=== PATIENT | female | born 1955 | race African-American/Black ===

== ENCOUNTER 2016-05-07 17:25 | Inpatient (IN) | payer OTHER ==
[~2016-05-07] VITALS: Ht 180.3 cm; Wt 146.7 kg
--- NOTE | ~2016-05-07 | HC ---
[facility] [place] [address] CONSULTATION Name: MARTÍNRANDA ALTMAN Room #: 458-P ADM IN M.R.#: [id number] Admission: 05/07/16 Attend Phys: Dileep Landa Discharge: Date of : 59 Report #: [id number] THIS REPORT FOR: //name// CC: Virginie Landa REASON FOR CONSULTATION: Elevated creatinine. REASON FOR PRESENTATION: Low hemoglobin. HISTORY OF PRESENT ILLNESS: This patient is well known to me. She is a 61-year-old with past medical history of diabetes mellitus. Her baseline creatinine is known to be around 1.5. She was admitted few months ago to [facility]. At that time, she had progressive worsening edema and diarrhea. Her diuresis course was complicated by an acute kidney injury with her creatinine leveling around 3. She then went to [facility] and we optimized her medical treatment and her creatinine had remained stable around 3. Her diuretic regimen as far as I recall at that time included only Lasix. She was discharged to [facility] and stayed there for about 4 weeks for rehabilitation. Reviewing her medication there, it does look like they have added Zaroxolyn to her regimen. Yesterday, they checked her hemoglobin, it was found to be low and was sent for further evaluation. She is known to have diabetes mellitus, hypertension with multiple other comorbid condition as listed below. PAST MEDICAL HISTORY: 1. Status post mastectomy for breast cancer followed by chemotherapy. 2. Diabetes mellitus with all of its complications. 3. Hypertension. 4. Status post left hip fracture repair. 5. Left tibial fracture repair. 6. Morbid obesity. 7. Tonsillectomy. 8. Gallbladder surgery. REVIEW OF SYSTEMS: GENERAL: No fever or chills. CARDIOVASCULAR: No chest pain or palpitation. PULMONARY: No cough or hemoptysis. GASTROINTESTINAL: No hematochezia, no melena. GENITOURINARY: No frequency, no urgency. MUSCULOSKELETAL: She is bedridden. FAMILY HISTORY: Significant for diabetes mellitus and hypertension. SOCIAL HISTORY: No drug or alcohol abuse. She stays at the [facility] right now. [facility] [address] [facility] [place] [address] CONSULTATION Name: RANDA RESENDIZ Room #: 458-P [facility] IN [facility].#: [id number] Admission: 05/07/16 Attend Phys: Dileep Landa Discharge: Date of : 59 Report #: [id number] MEDICATIONS: 1. Carvedilol. 2. Amlodipine. 3. Potassium was listed as medication; however, she declined taking it. 4. Metolazone. 5. Esomeprazole. 6. Sertraline. 7. Atorvastatin. 8. Insulin. PHYSICAL EXAMINATION: GENERAL: She is alert, oriented, in no apparent distress. VITAL SIGNS: Temperature 37.3, blood pressure 132/62. HEAD AND NECK: No jugular venous distention, no bruit, no thyromegaly. CHEST: Clear to auscultation bilaterally. CARDIOVASCULAR: Regular with no rub detected distant . ABDOMEN: Soft, nontender. EXTREMITIES: Lower extremities, +1 edema. Most of her edema is localized around her truncal area and in the thighs area. LABORATORY VALUES: Reviewed. Hemoglobin is up to 7.7. Potassium 5.7, creatinine is 4.5. She did have significant eosinophilia drawn all the way back to February. Her iron sat is low. Phosphorus is elevated. ASSESSMENT, IMPRESSION, PLAN: 1. Acute kidney injury. 2. Hyperkalemia. 3. Diabetes mellitus. 4. Hypertension. 5. Anemia. 6. Iron deficiency. 7. Eosinophilia. 8. We will resend the acute kidney injury workup. Blood pressure seems to be under control. 9. I would hold the diuretics for now including the Lasix and the metolazone. 10. Blood sugar control. 11. Workup for her anemia. 12. IV iron. 13. Discontinue Protonix given her eosinophilia. 14. Volume status seems to be optimized for now. Unfortunately, she has some [address] [address] CONSULTATION Name: RANDA RESENDIZ ANUPAMA Room #: 458-P [facility] IN .R.#: [id number] Admission: 05/07/16 Attend Phys: Dileep Landa Discharge: Date of : 59 Report #: [id number] chronic venous stasis changes that will never resolve with diuretics and further diuresis will compromise her renal function. <ELECTRONICALLY SIGNED> By: Mg Cee MD 05/09/16 0916 0923 0118 Mg Cee MD /nt
--- NOTE | ~2016-05-07 | HC ---
[facility] [place] [address] CONSULTATION Name: MARTÍNRANDA ALTMAN Room #: 458-P [facility] IN M.R.#: [id number] Admission: 05/07/16 Attend Phys: Dileep Landa Discharge: Date of : 59 Report #: [id number] THIS REPORT FOR: //name// CC: Virginie Landa MD DATE OF SERVICE: 05/09/2016 HISTORY OF PRESENT ILLNESS: The patient is a 61-year-old female in consultation for anemia. She denies any obvious bright red blood per rectum or melena. She has a history of chronic renal insufficiency. She denies any abdominal pain. She does have a family history of colon cancer in her sister. The patient's hemoglobin on admission was 7.3. She has received 1 unit of packed cells and she is currently undergoing IV iron infusion. Her hemoglobin today is 7.3 as well, yesterday was 7.7. She states her last colonoscopy was 10 years ago and reportedly negative at that time. On admission, creatinine was 4.5. In looking back at old hemoglobin levels in the computer, 2012, she was anemic in the 8-9 range as well. She has never been on dialysis apparently. She denies any abdominal pain, her weight has been stable. She does have a history of breast cancer, was treated, and now on remission. She currently denies any chest pain or shortness of breath. No fevers or chills. She does report generalized fatigue. PAST MEDICAL HISTORY: Breast cancer, status post right mastectomy and previous chemotherapy, history of diabetes, chronic renal insufficiency, previous cholecystectomy, hip surgery, obesity, history of depression, history of anemia, diabetes, peripheral neuropathy, history of congestive heart failure. MEDICATIONS ON ADMISSION: DuoNeb, Lovenox, Coreg, amlodipine, magnesium chloride, potassium, metolazone, Nexium, insulin, Zoloft, Lipitor. REVIEW OF SYSTEMS: As per HPI. FAMILY HISTORY: Positive for colon cancer in her sister who was reportedly diagnosed in her 30s or 40s. SOCIAL HISTORY: She is a former smoker, quit approximately several years ago. She reports occasional alcohol use. PHYSICAL EXAMINATION: VITAL SIGNS: Temperature is 98.7, pulse 62, blood pressure 133/56, respiratory rate is 18. GENERAL: She is alert and oriented x 3 in no acute distress. HEENT: Sclerae nonicteric. Oropharynx clear. [facility] [address] [place] [address] CONSULTATION Name: RANDA RESENDIZ Room #: 458-P [facility] IN [facility]#: [id number] Admission: 05/07/16 Attend Phys: Dileep Landa Discharge: Date of : 59 Report #: [id number] NECK: Supple, without lymphadenopathy. CARDIOVASCULAR: Regular rate and rhythm. LUNGS: Clear to auscultation anteriorly bilaterally. ABDOMEN: Soft. She is nontender, nondistended, normoactive bowel sounds. EXTREMITIES: No cyanosis, clubbing or edema. LABORATORY DATA: Sodium 144, potassium 5.4, chloride 113, bicarbonate 22, BUN 69, creatinine 4.5, glucose 65, calcium 8.2, magnesium 1.7. Iron 16, TIBC is 188. WBC is 7.0, hemoglobin 7.3, and platelet count is 245. ASSESSMENT AND PLAN: Anemia. No obvious history of melena or bright red blood per rectum, would recommend Hemoccult testing stools at this point. The patient is due for a colonoscopy as it has been more than 10 years and she has a family history. We will likely proceed with an esophagogastroduodenoscopy and colonoscopy on Tuesday. I explained to the patient we would like to have Nephrology evaluate her renal function before prepping. She is on IV fluids at this time as well. We will continue to follow closely. Thank you for allowing me to participate in her care. <ELECTRONICALLY SIGNED> By: Mak Nunez MD 05/10/16 1147 1428 2318 Mak Nunez MD /nt
--- NOTE | ~2016-05-07 | S ---
[facility] [place] [address] SURGICAL PATH RPT PROCEDURE Name: RUPA RESENDIZ Room #: 458-P [facility] IN M.R.#: [id number] Admission: 05/07/16 Date of : 59 Discharge: 05/12/16 Report #: [id number] Path Case #: [id number] PATHOLOGY REPORT COLLECTION DATE: 05/11/2016 RECEIVED DATE: 05/11/2016 SUBMITTING PHYS: Dr. Mak Nunez OTHER PHYS: Dr. Dileep Polanco SPECIMEN(S) RECEIVED: A.Biopsies small bowel B.Submucosal mass lipoma at 90 cm C.Polyp hot snare transverse colon * * * * * * * * * * * * FINAL DIAGNOSIS: A. "Biopsy small bowel", biopsy: - Small bowel/duodenal mucosa with minimal histologic alterations; no evidence of celiac sprue. B. "Submucosal mass lipoma at 90 cm", biopsy: - Superficial mucosal biopsy showing colonic mucosa with reactive and hyperplastic changes; no dysplasia seen (see comment). C. "Polyp hot snare transverse colon", biopsy: - Tubular adenoma; no high grade dysplasia. COMMENT: Within specimen B, no submucosal tissue is present for evaluation. Clinical and endoscopic correlation is recommended. (CLW:all:; d/t: 05/12/16) PATHOLOGIST: Cee Reyes M.D. REPORT ELECTRONICALLY SIGNED BY: Cee Reyes M.D. DATE/TIME: 05/12/2016 21:59 * * * * * * * * * * * * GROSS PATHOLOGY: A. Received in formalin labeled "Rupa Resendiz, biopsies small bowel," are three segments of smith soft tissue measuring 0.7 x 0.7 x 0.2 cm in aggregate dimensions and ranging from 0.2 to 0.5 cm in maximum dimension. The specimen is submitted entirely in cassette A1. B. Received in formalin labeled "Rupa Resendiz, submucosal mass lipoma at 90 cm," are six segments of smith soft tissue measuring 1.2 x 1.1 x 0.1 cm in aggregate dimensions and ranging from 0.2 to 0.4 cm in maximum dimension. The specimen is submitted entirely in cassette B1. [address] [address] SURGICAL PATH RPT PROCEDURE Name: RUPA RESENDIZ ANUPAMA Room #: 458-P [facility] IN ..#: [id number] Admission: 05/07/16 Date of : 59 Discharge: 05/12/16 Report #: [id number] Path Case #: [id number] C. Received in formalin labeled "Rupa Resendiz, transverse colon polyp," are three segments of smith soft tissue measuring 1.2 x 1.1 x 0.2 cm in aggregate dimensions and ranging from 0.5 to 0.9 cm in maximum dimension. The specimen is submitted entirely in cassette C1. (CAA; 05/11/2016) CLINICAL HISTORY: Anemia, hiatal hernia, lipoma, polyp, internal hemorrhoids A only: R/O celiac disease INITIAL CPT CODE(S): A; 00495 B; 45196 C; 27218 Professional services performed by [facility] at [facility] [address], [place] [address] Technical services performed by [facility] at [address] [place] [address], [address], [place] [address]. [facility] [address] [place] [address] PHONE: [phone] DIRECTOR: Daniel Barfield M.D. * * * END OF REPORT * * *
--- NOTE | ~2016-05-07 | P ---
[facility] [place] [place] [address] PROCEDURE REPORT Name: RANDA RESENDIZ Room #: 458-P [facility] IN ..#: [id number] Admission: 05/07/16 Attend Phys: Dileep Landa Discharge: 05/12/16 Date of : 59 Report #: [id number] THIS REPORT FOR: //name// CC: Virginie Lyman MD DATE OF SERVICE: 05/11/2016 PROCEDURE PERFORMED: Upper endoscopy with biopsies. HISTORY OF PRESENT ILLNESS: The patient is a 61-year-old female with a history of chronic renal insufficiency and anemia, had a hemoglobin 7.3 on admission. She has been transfused 2 units since admission. There has been no obvious history of bright red blood per rectum or melena. Hemoccult stool has been ordered, but has not been performed as yet. Her last colonoscopy was at least 10 years ago. She does have a family history of colon cancer in her sister. She denies any upper symptoms. Plan is for EGD and colonoscopy. DESCRIPTION OF PROCEDURE: The risks and benefits of the procedure were explained to the patient, those risks including but not limited to bleeding, perforation, the risk of sedation. She understood these risks and gave informed consent. Sedation was given using propofol per anesthesia. Next, a standard VoodooVoxinon upper endoscope was placed in the patient's mouth and advanced under direct vision through the esophagus, stomach and into the second portion of the duodenum. The esophagus was normal throughout. The GE junction was normal. Upon entering the stomach, a small hiatal hernia was noted. Overall, the gastric mucosa was normal. The pylorus was normal and patent. The duodenal bulb, first and second portion were all normal. Random biopsies of the second portion of the duodenum were obtained to rule out the possibility of celiac sprue. The scope was then withdrawn and the procedure terminated. The patient tolerated the procedure well. IMPRESSION: 1. Small hiatal hernia. 2. Otherwise, normal upper endoscopy. RECOMMENDATIONS: 1. Await biopsy results. 2. We will proceed with colonoscopy next today. [facility] [address] [place] [address] PROCEDURE REPORT Name: RANDA RESENDIZ Room #: 458-P [facility] IN M.R.#: [id number] Admission: 05/07/16 Attend Phys: Dileep Landa Discharge: 05/12/16 Date of : 59 Report #: [id number] Thank you for allowing me to participate in her care. <ELECTRONICALLY SIGNED> By: Mak Nunez MD 05/12/16 1932 1431 1845 Mak Nunez MD /nt
--- NOTE | ~2016-05-07 | P ---
[facility] [place] [address] PROCEDURE REPORT Name: RANDA RESENDIZ Room #: 458-P [facility] IN M.R.#: [id number] Admission: 05/07/16 Attend Phys: Dileep Landa Discharge: 05/12/16 Date of : 59 Report #: [id number] THIS REPORT FOR: //name// CC: Virginie Lyman MD DATE OF SERVICE: 05/11/2016 PROCEDURE PERFORMED: Colonoscopy with biopsies. HISTORY OF PRESENT ILLNESS: The patient is a 61-year-old female with chronic renal insufficiency, anemia, was transfused 2 units on admission. Hemoccult testing of stools has been pending. Last colonoscopy was approximately 10 years ago. She does have a family history of colon cancer in her sister. DESCRIPTION OF PROCEDURE: The risks and benefits of the procedure were explained to the patient, those risks including but not limited to bleeding, perforation, the risk of sedation. She understood these risks and gave informed consent. Sedation was given using propofol per anesthesia. Next, a digital rectal exam was initially performed, which was normal. Next, using a standard YuMingleinon colonoscope, the scope was placed in the patient's anus and advanced under direct vision to the cecum. The overall prep was good. Cecum and ileocecal valve were normal in appearance. The ascending colon was normal. In the transverse colon, a large 2 cm submucosal mass was noted. This appears consistent with a lipoma. Several biopsies were obtained. I was able to see some fat within the irrigant consistent with a lipoma. Also, in the transverse colon was a 5 mm sessile polyp. This was removed by snare cautery, otherwise the descending and sigmoid colon were normal. The rectal mucosa was normal. On retroflexion, small nonbleeding internal hemorrhoids were noted, otherwise normal colonoscopy. The scope was then withdrawn and the procedure terminated. The patient tolerated the procedure well. IMPRESSION: 1. At 90 cm, biopsies obtained, ____ likely lipoma. 2. Transverse colon polyp. 3. Nonbleeding internal hemorrhoids. 4. Otherwise, normal colonoscopy. RECOMMENDATIONS: 1. Await biopsy results. 2. Repeat colonoscopy in 5 years due to family history and polyp. 3. We will await Hemoccult testing at this time. [address] [address] PROCEDURE REPORT Name: RANDA RESENDIZ Room #: 458-P [facility] IN .R.#: [id number] Admission: 05/07/16 Attend Phys: Dileep Landa Discharge: 05/12/16 Date of : 59 Report #: [id number] Thank you for allowing me to participate in her care. <ELECTRONICALLY SIGNED> By: Mak Nunez MD 05/12/16 1936 1434 43 Mak Nunez MD /nt
[~2016-05-07 17:25] MED LIST: ALTACE10 MG PO; AMBIEN 5 MG TABL5 M1 PO; AMLODIPINE BESY10 MG PO; APIDRA SUBQ; BISACODYL10 MG RC; CARVEDILOL25 MG PO; COLACE 100 MG100 MG PO; CRESTOR10 MG PO; DIOVAN160 MG PO; DUONEB 2.5-0.5 M3 ML INH; ENOXAPARIN30 MG/0.1 SUBQ; ENOXAPARIN40 MG/0.1 SUBQ; GLUCOPHAGE500 MG PO; HYDROCODON-ACE1 EAC7 OR; HYDROCODONE-APA1 TA1 PO; IRON325 PO; K-DUR 20 MEQ T20 MEQ PO; LANTUS SUBQ; LEVEMIR; LEVEMIR SUBQ; LIPITOR 20 MG T20 M1 PO; MAG6464 MG PO; MAGNESIUM OXID400 MG PO; METOLAZONE 2.52.5 MG PO; NEXIUM40 MG PO; NORCO 5-325 TA1 EACH PO; NOVOLIN R100 UNIT/1 SUBQ; NOVOLOG100 UNIT/1; PROBIOTIC1 EAC2 PO; SERTRALINE HCL50 MG PO; TYLENOL325 MG PO; ZOFRAN ODT4 MG PO
[2016-05-07 18:29] VITALS: BP 133/61
[2016-05-07 19:30] VITALS: BP 135/55
[2016-05-07 22:15] LABS: RDW 18.1 % (10.5-14.5)
[2016-05-07 22:21] LABS: HEMATOCRIT 21.7 % (37.0-47.0); MCH 28.8 pg (26.0-34.0); MCHC 33.5 % (28.0-37.0); MCV 86.2 fL (80.0-100.0); RBC 2.52 mil/uL (4.20-5.00); WBC 7.2 thou/uL (4.0-11.0)
[2016-05-07 22:28] LABS: HEMOGLOBIN 7.3 gm/dL (12.0-15.0)
[2016-05-07 23:45] VITALS: BP 132/60; BP 138/66
[2016-05-08 04:13] VITALS: BP 133/59
[2016-05-08 04:22] LABS: HEMATOCRIT 22.5 % (37.0-47.0); RBC 2.59 mil/uL (4.20-5.00)
[2016-05-08 04:24] LABS: ABSOLUTE NEUTROPHILS 3.6 thou/uL (1.4-8.2); BASOPHILS 0.6 % (0.0-2.0); EOSINOPHILS 8.9 % (0.0-3.0); HEMOGLOBIN 7.7 gm/dL (12.0-15.0); LYMPHOCYTES 27.1 % (24.0-44.0); MCH 29.6 pg (26.0-34.0); MCHC 34.1 % (28.0-37.0); MONOCYTES 10.8 % (1.0-8.0); PLATELET COUNT 238 thou/uL (150-400); POLYS 52.6 % (36.0-66.0); RDW 17.2 % (10.5-14.5); WBC 6.9 thou/uL (4.0-11.0)
[2016-05-08 04:26] LABS: MANUAL DIFF NO
[2016-05-08 04:42] LABS: ALBUMIN 1.5 g/dL (3.4-5.0); ANION GAP 10 mmol/L (7-16); BUN 67 mg/dL (7-18); CALCIUM 8.1 mg/dL (8.5-10.1); CHLORIDE 110 mmol/L (98-107); CO2 21 mmol/L (21-32); CREATININE 4.5 mg/dL (0.6-1.3); GLUCOSE 67 mg/dL (70-99); PHOSPHORUS 6.3 mg/dL (2.5-4.9); POTASSIUM 5.7 mmol/L (3.5-5.1); SODIUM 141 mmol/L (136-145); TROPONIN-I < 0.04 ng/mL (<0.04-0.07)
[2016-05-08 06:09] LABS: % SATURATION 9 % (15-55); IRON 16 ug/dL (27-159); TIBC 188 ug/dL (250-450); UIBC 172 ug/dL (131-425)
[2016-05-08 08:09] VITALS: BP 132/60
[2016-05-08 10:23] LABS: ALBUMIN 1.5 g/dL (3.4-5.0); CALCIUM 7.6 mg/dL (8.5-10.1); CREATININE 4.3 mg/dL (0.6-1.3); PHOSPHORUS 6.2 mg/dL (2.5-4.9); POTASSIUM 5.5 mmol/L (3.5-5.1)
[2016-05-08 12:00] VITALS: BP 132/62
[2016-05-08 16:00] VITALS: BP 117/57
[2016-05-08 19:56] LABS: URINE BILIRUBIN NEGATIVE (Negative); URINE BLOOD 2+ (Negative); URINE COLOR YELLOW; URINE GLUCOSE-RANDOM* NEGATIVE (Negative); URINE KETONES NEGATIVE (Negative); URINE NITRITE POSITIVE (Negative); URINE PROTEIN (DIPSTICK) 2+ (Negative); URINE SPECIFIC GRAVITY 1.025 (1.003-1.035); URINE UROBILINOGEN 0.2 E.U./dl (0.2-1.0)
[2016-05-08 20:04] LABS: COARSE GRANULAR CASTS 4-10 Moderate /LPF (None Seen); HYALINE CASTS 0-3 Few /LPF (None Seen); SQUAMOUS None Seen /LPF (0-3); URINE WBC >25 Many /HPF (0-5); YEAST Present (None Seen)
[2016-05-08 20:05] LABS: BACTERIA >30 Many /HPF (None Seen); URINE RBC 0-2 Rare /HPF (0-2)
[2016-05-08 20:16] VITALS: BP 125/49
[2016-05-08 20:40] LABS: SMEAR FOR EOSINOPHILS Few per HPF
[2016-05-09] VITALS (7 sets, daily range): BP systolic 125–135; BP diastolic 52–57
[2016-05-09 05:42] LABS: MCH 28.5 pg (26.0-34.0); MCHC 32.7 % (28.0-37.0)
[2016-05-09 05:44] LABS: HEMATOCRIT 22.3 % (37.0-47.0); MCV 87.2 fL (80.0-100.0); RBC 2.56 mil/uL (4.20-5.00); RDW 17.2 % (10.5-14.5)
[2016-05-09 05:51] LABS: HEMOGLOBIN 7.3 gm/dL (12.0-15.0)
[2016-05-09 05:54] LABS: ALBUMIN 1.4 g/dL (3.4-5.0); CALCIUM 8.2 mg/dL (8.5-10.1); CREATININE 4.5 mg/dL (0.6-1.3); PHOSPHORUS 6.2 mg/dL (2.5-4.9); POTASSIUM 5.4 mmol/L (3.5-5.1)
[2016-05-09 13:06] LABS: URINE CREATININE-RANDOM* 57.1 mg/dL (Not Estab.)
[2016-05-10 03:30] VITALS: BP 125/57
[2016-05-10 04:27] LABS: ABSOLUTE NEUTROPHILS 3.6 thou/uL (1.4-8.2); BASOPHILS 0.7 % (0.0-2.0); HEMATOCRIT 22.9 % (37.0-47.0); HEMOGLOBIN 7.7 gm/dL (12.0-15.0); LYMPHOCYTES 29.5 % (24.0-44.0); MCH 28.6 pg (26.0-34.0); MCHC 33.8 % (28.0-37.0); MCV 84.6 fL (80.0-100.0); MONOCYTES 9.9 % (1.0-8.0); PLATELET COUNT 272 thou/uL (150-400); POLYS 50.9 % (36.0-66.0); RBC 2.71 mil/uL (4.20-5.00); RDW 16.9 % (10.5-14.5)
[2016-05-10 04:33] LABS: MANUAL DIFF NO
[2016-05-10 04:49] LABS: ALBUMIN 1.4 g/dL (3.4-5.0); CALCIUM 8.1 mg/dL (8.5-10.1); CREATININE 4.4 mg/dL (0.6-1.3); PHOSPHORUS 5.6 mg/dL (2.5-4.9); POTASSIUM 5.2 mmol/L (3.5-5.1)
[2016-05-10 07:36] VITALS: BP 130/62
[2016-05-10 12:28] VITALS: BP 130/64
[2016-05-10 16:52] VITALS: BP 142/73
[2016-05-10 19:47] VITALS: BP 151/66
[2016-05-11 05:03] VITALS: BP 154/75
[2016-05-11 05:37] LABS: HEMATOCRIT 27.5 % (37.0-47.0); HEMOGLOBIN 9.1 gm/dL (12.0-15.0); MCH 28.5 pg (26.0-34.0); MCHC 33.2 % (28.0-37.0); MCV 85.8 fL (80.0-100.0); RBC 3.2 mil/uL (4.20-5.00); RDW 16.7 % (10.5-14.5); WBC 6.9 thou/uL (4.0-11.0)
[2016-05-11 05:54] LABS: ALBUMIN 1.4 g/dL (3.4-5.0); CALCIUM 8.3 mg/dL (8.5-10.1); PHOSPHORUS 5.1 mg/dL (2.5-4.9); POTASSIUM 5.1 mmol/L (3.5-5.1)
[2016-05-11 07:56] VITALS: BP 155/72
[2016-05-11 15:50] VITALS: BP 152/70
[2016-05-11 16:11] LABS: KAPPA FREE LIGHT CHAINS 197.78 mg/L (3.30-19.40); KAPPA/LAMBDA RATIO 1.56 (0.26-1.65)
[2016-05-11 19:46] VITALS: BP 141/58
[2016-05-12 04:03] VITALS: BP 126/58
[2016-05-12 06:03] LABS: ALBUMIN 1.4 g/dL (3.4-5.0); CALCIUM 7.9 mg/dL (8.5-10.1); CREATININE 4.1 mg/dL (0.6-1.3)
[2016-05-12 08:08] VITALS: BP 139/56
[2016-05-12 10:49] VITALS: BP 137/65
[2016-05-12] MEDS ORDERED: ZYVOX600 MG PO (12:00)
[2016-05-12] MEDS ORDERED: ACETAMINOPHEN325 M1 PO (12:00)
[2016-05-12] MEDS ORDERED: PROCRIT20000 UNIT SUBQ (12:00)
[2016-05-12] MEDS ORDERED: CALCIUM ACETAT667 MG PO (12:01)
[2016-05-12] MEDS ORDERED: PEPCID20 MG PO (12:01)
[2016-05-12] MEDS ORDERED: LEVEMIR SUBQ (12:02)
[2016-05-12 16:12] LABS: c-ANCA <1:20 titer (Neg:<1:20); p-ANCA <1:20 titer (Neg:<1:20)
[2016-05-12 16:15] VITALS: BP 149/76
[2016-05-12 17:09] LABS: A/G RATIO 0.6 (0.7-1.7); ALBUMIN 1.8 g/dL (2.9-4.4); ALPHA 1 0.3 g/dL (0.0-0.4); ALPHA 2 0.8 g/dL (0.4-1.0); BETA 0.8 g/dL (0.7-1.3); GAMMA 1.1 g/dL (0.4-1.8); M-SPIKE Not Observed g/dL (Not Observed)
== END 2016-05-12 18:34 | DRG 682 ==
LOC: 4W 17:25
PROVIDERS: Hospitalist; Internal Medicine Nephrology
PROC: 30233N1 Transfusion of Nonautologous Red Blood Cells into Peripheral Vein, Percutaneous Approach (ICD-10-PCS; principal; 2016-05-09)
PROC: 0DB98ZX Excision of Duodenum, Via Natural or Artificial Opening Endoscopic, Diagnostic (ICD-10-PCS; 2016-05-11)
PROC: 0D5L8ZZ Destruction of Transverse Colon, Via Natural or Artificial Opening Endoscopic (ICD-10-PCS; 2016-05-11)
PROC: 0DBL8ZZ Excision of Transverse Colon, Via Natural or Artificial Opening Endoscopic (ICD-10-PCS; 2016-05-11)
DX: N17.9 Acute kidney failure, unspecified (principal); I50.43 Acute on chronic combined systolic (congestive) and diastolic (congestive) heart failure; I13.0 Hypertensive heart and chronic kidney disease with heart failure and stage 1 through stage 4 chronic kidney disease, or unspecified chronic kidney disease; I42.9 Cardiomyopathy, unspecified; N39.0 Urinary tract infection, site not specified; Z68.42 Body mass index [BMI] 45.0-49.9, adult; E87.5 Hyperkalemia; N18.4 Chronic kidney disease, stage 4 (severe); D50.9 Iron deficiency anemia, unspecified; D72.1 Eosinophilia; K44.9 Diaphragmatic hernia without obstruction or gangrene; K64.8 Other hemorrhoids; D12.3 Benign neoplasm of transverse colon; E11.40 Type 2 diabetes mellitus with diabetic neuropathy, unspecified; F32.9 Major depressive disorder, single episode, unspecified; E11.65 Type 2 diabetes mellitus with hyperglycemia; E66.01 Morbid (severe) obesity due to excess calories; E11.22 Type 2 diabetes mellitus with diabetic chronic kidney disease; E83.39 Other disorders of phosphorus metabolism; B95.7 Other staphylococcus as the cause of diseases classified elsewhere; Z80.0 Family history of malignant neoplasm of digestive organs; Z87.891 Personal history of nicotine dependence; Z90.11 Acquired absence of right breast and nipple; Z85.3 Personal history of malignant neoplasm of breast; Z87.81 Personal history of (healed) traumatic fracture; Z98.890 Other specified postprocedural states; Z82.49 Family history of ischemic heart disease and other diseases of the circulatory system; Z83.3 Family history of diabetes mellitus; Z90.49 Acquired absence of other specified parts of digestive tract; E78.5 Hyperlipidemia, unspecified; D64.4 Congenital dyserythropoietic anemia
CPT/HCPCS: 10045; 62110; 62900; 70005

== ENCOUNTER 2018-07-15 14:13 | Inpatient (IN) | payer OTHER ==
[~2018-07-15] VITALS: Ht 180.3 cm; Wt 115.7 kg
[2018-07-15 14:13] VITALS: BP 174/92
[~2018-07-15 14:13] MED LIST changes: +ACETAMINOPHEN325 M1 PO; +CALCIUM ACETAT667 MG PO; +PEPCID20 MG PO; +PROCRIT20000 UNIT SUBQ; +ZYVOX600 MG PO
[2018-07-15 15:03] LABS: ABSOLUTE NEUTROPHILS 3.1 thou/uL (1.4-8.2); BASOPHILS 0.4 % (0.0-2.0); EOSINOPHILS 4.9 % (0.0-3.0); HEMOGLOBIN 11.1 gm/dL (12.0-15.0); LYMPHOCYTES 26.1 % (24.0-44.0); MCH 24.8 pg (26.0-34.0); MCHC 31.8 g/dL (28.0-37.0); MONOCYTES 8.5 % (1.0-8.0); PLATELET COUNT 219 thou/uL (150-400); POLYS 60.1 % (36.0-66.0); RBC 4.49 mil/uL (4.20-5.00); RDW 19.8 % (10.5-14.5); WBC 5.1 thou/uL (4.0-11.0)
[2018-07-15 15:12] LABS: ANION GAP 6 mmol/L (7-16); BUN 13 mg/dL (7-18); CALCIUM 8.3 mg/dL (8.5-10.1); CHLORIDE 99 mmol/L (98-107); CO2 30 mmol/L (21-32); CREATININE 3.1 mg/dL (0.6-1.0); GLUCOSE 74 mg/dL (74-106); POTASSIUM 3.7 mmol/L (3.5-5.1); SODIUM 135 mmol/L (136-145)
[2018-07-15 15:19] LABS: PROTIME 10.7 Seconds (9.3-11.4)
[2018-07-15 15:21] LABS: SGOT 10 U/L (15-37); SGPT 6 U/L (30-65); TOTAL BILIRUBIN 0.3 mg/dL (<0.1-1.0); TOTAL PROTEIN 8.4 g/dL (6.4-8.2); TROPONIN-I <0.06 ng/mL (<0.06)
[2018-07-15 15:25] LABS: APTT 93.1 Seconds (24.5-32.8)
[2018-07-15 19:21] VITALS: BP 142/70
--- NOTE | 2018-07-15 19:25 | NUR ---
CALLED AT 19:20 TO GIVE REPORT [id number], ROOM ALREADY ASSIGNED. PUT ON HOLD AND NOBODY ANSWERED.
--- NOTE | 2018-07-15 19:26 | NUR ---
CALLED AT 18:50 TO GIVE REPORT, WAS PUT ON HOLD AND NOBODY PICKED UP PHONE AFTERWARDS. AM CHARGE NURSE REPORTS THEY HAVE BEEN TRYING TO GIVE REPORT FOR SOME TIME NOW
[2018-07-15 19:36] VITALS: BP 126/60
[2018-07-15 20:00] VITALS: BP 199/52
[2018-07-16 00:10] VITALS: BP 155/79
--- NOTE | 2018-07-16 04:19 | NUR ---
PT NEW ADMIT FROM ER. WITH SYCOPE/SEIZURE LIKE EPISODE DURING DIALYSIS. ARRIVE ON UNIT ABOUT 1999. AO X4. DENIES PAIN. PT IS NON AMBULATORY WITH MILD LEFT SIDED WEAKNESS. WITH EDEMA NON PITTING RIGHT LEG AND +1 TO THE LEFT LEG. BP CONTROLLED COMPARED TO ADMISSION PRESSURES. PT ANTICIPATES TO DISCHARGE HOME TODAY. WILL CONTINUE TO FOLLOW POC.
[2018-07-16 05:26] LABS: HEMATOCRIT 28.8 % (37.0-47.0); MCH 24.3 pg (26.0-34.0); MCHC 31.3 g/dL (28.0-37.0); MCV 77.8 fL (80.0-100.0); RBC 3.7 mil/uL (4.20-5.00); RDW 19.6 % (10.5-14.5); WBC 5.1 thou/uL (4.0-11.0)
[2018-07-16 05:32] LABS: CALCIUM 8.1 mg/dL (8.5-10.1); CREATININE 3.6 mg/dL (0.6-1.0)
[2018-07-16 06:08] VITALS: BP 139/68
[2018-07-16 08:08] VITALS: BP 174/82
[2018-07-16 10:42] LABS: HEMATOCRIT 29.2 % (37.0-47.0); HEMOGLOBIN 9.1 gm/dL (12.0-15.0)
[2018-07-16 11:51] VITALS: BP 133/61
[2018-07-16 15:37] VITALS: BP 133/66
[2018-07-16 19:54] VITALS: BP 133/62
--- NOTE | 2018-07-16 20:09 | NUR ---
ASSUMED CARE AT 0700. PT A&OX4 AND VERY PLEASANT. PT STATED AT BEGINNING OF SHIFT THAT IT WAS HER DESIRE TO BE DISCHARGED HOME TODAY. HOSPITALIST WROTE D/C ORDERS BUT NEUROLOGIST REQUESTED PT TO STAY FOR MRI TOMORROW. PT AGREED AND HOSPITALIST NOTIFIED OF CHANGE IN PLAN. MRI SCREENING FAXED TO MRI AND COPY PLACED ON CHART. PT IS DIALYSIS PT AND HAD NO URINE OUTPUT TODAY.
[2018-07-17] VITALS (9 sets, daily range): BP systolic 115–159; BP diastolic 54–76
--- NOTE | 2018-07-17 00:58 | NUR ---
AOX4, DENIES ANY PAIN. FLACCID LEFT LOWER EXTREMITIES, FULL RANGE OF MOTION ON BOTH UPPER EXTREMITIES. SR ON THE MONITOR. PULSES 1+/2+. LUNG SOUNDS CLEAR AND DIMINISHED ON THE BASES, ON ROOM AIR. RIGHT UPPER CHEST DIALYSIS, SCD ON, LEFT WRIST G 22 INTACT AND FLUSHES WELL. FOLLOW UP POC.
--- NOTE | 2018-07-17 08:10 | EKG ---
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1955 Requested By: Adi Lovelace Order Number: [id number] MD: Jayson Brooks Measurements Intervals [place] Rate: 81 P: 25 MD: 155 QRS: -23 QRSD: 112 T: 17 QT: 408 QTc: 474 Interpretive Statements Sinus rhythm Left ventricular hypertrophy Compared to ECG 03/06/2016 06:57:13 Left ventricular hypertrophy now present Poor R-wave progression no longer present Prolonged QT interval no longer present Electronically Signed On 07-17-2018 8:10:37 CDT by Jayson Brooks [email or web address] ��������������������������������������������� <ELECTRONICALLY SIGNED> ���������������������������������������� By: Jayson Brooks MD, [facility] ��������������������������������������������� 07/17/18 0810 1502 1502 Jayson Brooks MD, [facility] /EPI
--- NOTE | 2018-07-17 11:51 | NUR ---
met with patient who resides at home with her mother. She dializes at [facility]. She uses [facility] to/from dialysis. She is wc bound and has a lift device at home. She reports family is supportive. All needs on one level in home and no steps to enter. She will need transport home via [facility] at dc. SHe reports her mother is at home for dc.
[2018-07-17] MEDS ORDERED: CARVEDILOL25 MG PO (12:17)
[2018-07-17] MEDS ORDERED: SERTRALINE HCL50 MG PO (12:17)
[2018-07-17] MEDS ORDERED: LIPITOR 20 MG T20 M1 PO (12:17)
[2018-07-17] MEDS ORDERED: ACETAMINOPHEN325 M1 PO (12:17)
[2018-07-17] MEDS ORDERED: AMLODIPINE BESY10 MG PO (12:17)
--- NOTE | 2018-07-17 14:32 | NUR ---
patient to dc home via [facility] transport van. Patient aware of [facility] $25 cost. no further needs
--- NOTE | 2018-07-21 10:20 | HC ---
[facility] [place] [address] CONSULTATION Name: RANDA RESENDIZ Room #: 205-P [facility] IN M.R.#: [id number] Admission: 07/15/18 ������������������ Attend Phys: Bina Wolf MD Discharge: 07/17/18 ������������������ Date of : 59 Report #: [id number] THIS REPORT FOR: //name// CC: Virginie Cerna DATE OF SERVICE: 07/15/2018 HISTORY OF PRESENT ILLNESS: This is a 63-year-old female patient who was seen by me in the Emergency Room. I talked to the Emergency Room physician multiple times. The history is confusing in this patient. Initially, she told the Emergency Room physician that the weakness in her left lower extremity is new. Emergency Room physician called other people and they indicated this patient had this weakness for a long time. When I talked to the patient, she also said that she was confused. I am not sure how she was confused, but she said the weakness started about year and a half ago. The history there also is pretty unusual. She indicates she had gained a lot of weight. This was because she was retaining fluid. She became very weak in the legs; on the right side she recovered and the left side, she has not. I do not know if a good cause was established, but now it is pretty certain that the weakness in the left lower extremity is old. She had an episode of what looks like tonic-clonic seizure activity, where her eyes rolled up. She does not remember anything about it. So, it looks like she had a small seizure. When she came in, she was very hypertensive. The question was how fast to lower her blood pressure, but I am not sure that is the question anymore because when I saw her, the blood pressure was 126/60 and she was tolerating the blood pressure very well and she had no aggravation of her symptoms because of that. REVIEW OF SYSTEMS: Pretty extensive in this patient. She is on dialysis. She has a history of cardiomyopathy. She has a congestive heart failure. She had mastectomy and chemotherapy in the past. She had hip surgery in the past. She has neuropathy because of diabetes, as I understand. This was her relevant 14-point review of system. She was feeling back to her baseline and she says that she does not have any new eye, ENT, cardiac, respiratory, GI, , constitutional, dermatological, hematological, psychiatric, throat or allergic symptom associated with present symptomatology. PAST MEDICAL HISTORY: Negative for any stroke according to her, but she has weakness, as described above. [address] [address] CONSULTATION Name: MARTÍNRANDA Room #: [address] [place] [address] IN M.R.#: [id number] Admission: 07/15/18 ������������������ Attend Phys: Bina Wolf MD Discharge: 07/17/18 ������������������ Date of : 59 Report #: [id number] FAMILY HISTORY: Negative for any early age stroke. SOCIAL HISTORY: She has smoked in the past. PHYSICAL EXAMINATION: NEUROLOGIC: The patient's examination indicates she is alert, responsive, able to follow simple and complex command. Her speech, concentration, fund of knowledge and memory are at her baseline. Cranial nerve examination 2-12 looks mostly unremarkable. Upper extremities look unremarkable. Lower extremities, she does not have any movement on the left lower extremity. Her tone is also diminished there. Reflexes are diminished, but that is because of diabetes. She does not have any cerebellar sign. I could not look at the patient's fundus. NECK: She has no thyroid mass. She is moderately obese. HEENT: She does not have any dysmorphic features of eyes, ears and face. Her vision and hearing look adequate. She does not appear to have any edema. VITAL SIGNS: Blood pressure is now 126/60, respirations 17, pulse is 75 and temperature is 98.6. LABORATORY DATA: White count is 4.49. Sodium is 135. She did have a CT scan of the head and that was unremarkable. IMPRESSION: 1. Seizure-like activity for which most likely etiology is metabolic, especially related to dialysis. 2. Hypertensive urgency when she came in, but the blood pressure dropped by itself without any aggravating symptoms. 3. Confusion about motor deficit, but is pretty certain it is old now and she said she does not have any new motor deficits. RECOMMENDATIONS: Initial plan was to get a CT angiogram done if Nephrology is okay with that. However, the history has changed. They could not get a CT angiogram anyway in this patient because they could not get an IV in. With the changed history, I think it will be okay to watch the patient because she is pretty much back to her baseline and symptoms look more likely seizures than stroke. CT angiogram would have also helped us to see how fast to lower her blood pressure. If she has a significant stenosis, then we were going to lower it slowly and if that there was no stenosis, we were going to lower the blood pressure faster. That is also a redundant question now because her blood pressure got lowered to even 120s and she has no aggravation of her symptoms. I still think she needs some further workup. We will get an EEG done. She has no contraindication for MRI and we will get an MRI done to complete the workup. If these tests show something or if the patient has further symptoms, then we [facility] [address] [place] [address] CONSULTATION Name: RANDA RESENDIZ Room #: 205-P [facility] IN M.R.#: [id number] Admission: 07/15/18 ������������������ Attend Phys: Bina Wolf MD Discharge: 07/17/18 ������������������ Date of : 59 Report #: [id number] will proceed with further management. Thank you very much for this referral. ��������������������������������������������� <ELECTRONICALLY SIGNED> ���������������������������������������� By: Peewee Lopez MD ��������������������������������������������� 07/21/18 1020 1941 2348 Peewee Lopez MD /nt
--- NOTE | 2018-07-21 10:20 | EEG ---
[facility] [place] [address] ELECTROENCEPHALOGRAM Name: RANDA RESENDIZ Room #: 205-P [facility] IN M.R.#: [id number] ������������������ Admission: 07/15/18 ������������������ Attend Phys: Bina Wolf MD Discharge: 07/17/18 ������������������ Date of : 59 Report #: [id number] ����������������������������������������������������������������� [id number] THIS REPORT FOR: //name// CC: Virginie Cerna DATE OF SERVICE: 07/17/2018 INTERPRETATION: This patient is being evaluated for seizure. EEG was done by placing the electrode by standard 10-20 system of electrode placement. Both referential and sequential montages were used for recording. Background activity in this patient's EEG is about 10 Hz and 30 microvolts. The patient became drowsy that is associated with bilateral slowing. Photic stimulation was unremarkable. Throughout the record, no active epileptiform activity was noticed. IMPRESSION: This patient's EEG is unremarkable. ���������������������������������������� <ELECTRONICALLY SIGNED> ���������������������������������������� By: Peewee Lopez MD ��������������������������������������������� 07/21/18 1020 1721 1855 Peewee Lopez MD /nt
== END 2018-07-17 15:26 | disposition home or self-care (01) | DRG 312 ==
LOC: ER 14:13 → EROBS 17:01 → 2N 17:01
PROVIDERS: Emergency Medicine; Nurse Practitioner Acute Care; ADMIT Internal Medicine
DX: R55 Syncope and collapse (principal); N18.6 End stage renal disease; I42.9 Cardiomyopathy, unspecified; I13.11 Hypertensive heart and chronic kidney disease without heart failure, with stage 5 chronic kidney disease, or end stage renal disease; E11.42 Type 2 diabetes mellitus with diabetic polyneuropathy; I16.0 Hypertensive urgency; E11.22 Type 2 diabetes mellitus with diabetic chronic kidney disease; F32.9 Major depressive disorder, single episode, unspecified; I50.9 Heart failure, unspecified; Z87.81 Personal history of (healed) traumatic fracture; Z87.891 Personal history of nicotine dependence; Z99.2 Dependence on renal dialysis; Z90.49 Acquired absence of other specified parts of digestive tract; Z90.11 Acquired absence of right breast and nipple; Z85.3 Personal history of malignant neoplasm of breast; Z86.14 Personal history of Methicillin resistant Staphylococcus aureus infection; Z79.899 Other long term (current) drug therapy
CPT/HCPCS: 10081